=== PATIENT | female | born 1990 | race Two or more races ===

== ENCOUNTER 2016-08-27 15:59 | Emergency (ER) | payer SELFPAY ==
[2016-08-27 16:03] VITALS: BP 132/80
--- NOTE | 2016-08-27 16:29 | ER Document Report ---
ED Medical Screen (RME) - General Stated Complaint: POSSIBLE ABSCESS Mode of Arrival: Ambulatory Information source: Patient Notes: She presents to the emergency department with complaints of abscess on her buttocks for the past week. She denies fever vomiting diarrhea. She denies history of MRSA. I have greeted and performed a rapid initial assessment of this patient. A comprehensive ED assessment and evaluation of the patient, analysis of test results and completion of the medical decision making process will be conducted by additional ED providers. TRAVEL OUTSIDE OF THE [place] IN LAST 30 DAYS: No - Related Data Allergies/Adverse Reactions: No Known Allergies Allergy (Verified 08/27/16 16:28) Past Medical History - Immunizations Immunizations up to date: Yes Hx Diphtheria, Pertussis, Tetanus Vaccination: Yes - unknown Physical Exam - Vital signs Vitals: Temp Pulse Resp BP Pulse Ox 98.4 F 106 H 14 132/80 H 98 08/27/16 16:02 08/27/16 16:02 08/27/16 16:02 08/27/16 16:02 08/27/16 16:02 Course - Vital Signs Vital signs: Temp Pulse Resp BP Pulse Ox 98.4 F 106 H 14 132/80 H 98 08/27/16 16:02 08/27/16 16:02 08/27/16 16:02 08/27/16 16:02 08/27/16 16:02
[2016-08-27] MEDS ORDERED: LIDOCAINE 1% INJ-PF (10 MG/ML) 30 ML SDV INJ ONE (18:08)
[2016-08-27] MEDS ORDERED: OXYCODONE-ACETAMINOPHEN 5-325 MG TABLET PO ONE (18:09)
[2016-08-27] MEDS ORDERED: SULFAMETHOXAZOLE/TRIMETHOPRIM 800-160 MG TABLET PO ONE (18:09)
--- NOTE | 2016-08-27 18:13 | ER Document Report ---
ED Skin Rash/Insect Bite/Abscs - General Chief Complaint: Abscess Stated Complaint: POSSIBLE ABSCESS Mode of Arrival: Ambulatory Information source: Patient Notes: Patient is 27-year-old female that presents today with 4 days onset of some pain to her right buttocks. She believes she has an abscess. She states nausea without vomiting or fevers. Patient has had an abscess to her buttocks 2 in the past. She denies any history of diabetes. TRAVEL OUTSIDE OF THE [place] IN LAST 30 DAYS: No - HPI Patient complains to provider of: Skin rash/lesion Onset: Other - See above Onset/Duration: Gradual Quality of pain: Achy Severity: Mild Pain Level: 2 Skin Character: Abscess Skin Temperature: Warm Quality of rash: Painful Identify cause: No Similar symptoms previously: Yes - Related Data Allergies/Adverse Reactions: No Known Allergies Allergy (Verified 08/27/16 16:28) Past Medical History - General Information source: Patient - Social History Smoking Status: Current Every Day Smoker Cigarette use (# per day): No Chew tobacco use (# tins/day): No Smoking Education Provided: No Frequency of alcohol use: None Drug Abuse: None Family History: Reviewed & Not Pertinent Patient has suicidal ideation: No Patient has homicidal ideation: No Renal/ Medical History: Denies: Hx Peritoneal Dialysis - Immunizations Immunizations up to date: Yes Hx Diphtheria, Pertussis, Tetanus Vaccination: Yes - unknown Hx Pneumococcal Vaccination: 08/02/00 Physical Exam - Vital signs Vitals: Temp Pulse Resp BP Pulse Ox 98.4 F 106 H 14 132/80 H 98 08/27/16 16:02 08/27/16 16:02 08/27/16 16:02 08/27/16 16:02 08/27/16 16:02 Notes: Reviewed vital signs and nursing note as charted by RN. CONSTITUTIONAL: Alert and oriented and responds appropriately to questions. Well -appearing; well-nourished HEAD: Normocephalic; atraumatic GI/: Patient has a small 2 x 3 cm abscess to the inner right buttocks. No perirectal or perianal lesions. No midline gluteal cleft lesions. Course - Re-evaluation Re-evalutation: 08/27/16 18:13 Given the history and physical examination, I will perform an Accu-Chek, provide antibiotics, and perform incision and drainage. - Vital Signs Vital signs: Temp Pulse Resp BP Pulse Ox 98.4 F 106 H 14 132/80 H 98 08/27/16 16:02 08/27/16 16:02 08/27/16 16:02 08/27/16 16:02 08/27/16 16:02 Procedures - Incision and Drainage Left Buttock Type: Simple Anesthetic type: 1% Lidocaine Blade size: 11 I&D procedure: Chlorprep applied, Iodoform packing placed Incision Method: Incision made by scalpel Amount/type of drainage: moderate Notes: 08/27/16 18:58 Probed and broke up loculations Discharge - Discharge Clinical Impression: Left buttock abscess Condition: Good Disposition: HOME, SELF-CARE Instructions: Abscess ([facility]), Trimethoprim-Sulfa ([facility]), Oral Narcotic Medication ([facility]), Post Incision and Drainage Additional Instructions: Come back immediately with any increased pain, swelling, fevers, vomiting, or any other acute problems. Please make sure that you follow the instructions below and follow-up at the primary care physician. You must do all the following during the same week. --Showers with Hibiclens using the nail brush under the nails twice a day for one week. --At the same time, use Bactroban I have prescribed into each nostril twice daily for a week. --Wash all linen, towels, washclothes and clothing in scorching hot water during the last two days of treatment. --Put blankets, pillows through the dryer on high heat for 10-15 mins during the last two days of treatment. --Avoid shaving for one week, purchase new razor. --Aggressive hand-washing hygiene. --Use a disinfectant to clean telephones and door handles. Prescriptions: Hydrocodone/Acetaminophen [[place] 5-325 Tablet] 1 each PO Q6 PRN #12 tablet PRN Reason: For Pain Mupirocin Calcium [Bactroban Nasal] 1 gm NS BID #1 oint...g. Sulfamethoxazole/Trimethoprim [Bactrim Ds Tablet] 2 each PO BID #40 tablet
[2016-08-27] MEDS ORDERED: HYDROCODONE/ACETAMINOPHEN 5-325 MG TABLET PO ONE (18:27)
== END 2016-08-27 19:44 | disposition home or self-care (01) ==
LOC: ER 15:59
PROC: 0H98XZZ Drainage of Buttock Skin, External Approach (ICD-10-PCS; principal; 2016-08-27)
DX: L02.31 Cutaneous abscess of buttock (principal); R11.0 Nausea; F17.200 Nicotine dependence, unspecified, uncomplicated
CPT/HCPCS: 99283; 82962; 10060; J3490

== ENCOUNTER → 2019-04-28 | Outpatient (CLI) | payer OTHER ==
--- NOTE | 2019-04-28 13:40 | RADIOLOGY REPORT (SQ) ---
EXAM DESCRIPTION: KUB COMPLETED DATE/TIME: 04/28/2019 10:42 am REASON FOR STUDY: CONSTIPATION K59.00 CONSTIPATION, UNSPECIFIED COMPARISON: None. NUMBER OF VIEWS: One view. TECHNIQUE: Supine radiographic image of the abdomen acquired. LIMITATIONS: None. FINDINGS: BOWEL GAS PATTERN: Normal bowel gas pattern. No dilated loops. No constipation CALCIFICATIONS: No suspicious calcifications. SOFT TISSUES: No gross mass or suggestion of organomegaly. HARDWARE: None in the abdomen. BONES: No acute fracture. No worrisome bone lesions. OTHER: No other significant finding. IMPRESSION: NO RADIOGRAPHIC EVIDENCE FOR ACUTE ABDOMINAL DISEASE. TECHNICAL DOCUMENTATION: JOB ID: [id number] [employer]- All Rights Reserved Reading location - IP/workstation name: [email or web address]
== END ==
LOC: OD 10:29
PROVIDERS: ATTEND Internal Medicine Gastroenterology
DX: K59.00 Constipation, unspecified (principal)
CPT/HCPCS: 74018